=== PATIENT | female | born 1940 | race Caucasian/White ===

== ENCOUNTER → 2016-05-10 | Outpatient (CLI) | payer OTHER, BC ==
--- NOTE | 2016-05-10 17:48 | MA ---
Screening Digital Mammogram With iCAD Analysis Clinical Indications: Routine screening. Technique: Standard cephalocaudal projections are obtained. Digital breast tomosynthesis was performe d in the MLO projection with reconstruction at 1.0 mm slice thickness and composite MLO views reconst ructed. This examination is processed by the iCAD computer aided detection system. Comparison: May 2015, May 2014, April 2013, March 2012, January 2012, December 2010, A ugust 2009. Breast density: Type C: Heterogeneously dense. Findings: CAD was reviewed. No masses, suspicious calcifications or secondary signs of malignancy are seen. There has been no significant change in the appearance of either breast. Impression: Negative mammogram. BI-RADS 1. Recommendation: Routine mammographic screening in one year as long as physical examination is negativ e in this patient with heterogeneously dense breast parenchyma. [facility] will send a result letter to the patient. Negative mammography should not preclude additional workup of a clinically suspicious finding. The patient's information is entered into a reminder system with a target due date for her next mammo gram.
== END ==
LOC: FIMAGING 14:04
DX: Z12.31 Encounter for screening mammogram for malignant neoplasm of breast (principal)
CPT/HCPCS: G0202

== ENCOUNTER → 2016-06-14 | Outpatient (CLI) | payer OTHER, BC ==
--- NOTE | 2016-06-14 09:44 | DX ---
Chest, Two Views at 0900 hours History: COUGH, HEADACHE AND BODY ACHES THAT STARTED 3 DAYS AGO. Comparison: None. Findings: Cardiac silhouette is within normal range. Patchy opacity in the left lower lobe which may represent pneumonia with slight elevation of the left hemidiaphragm. Right lung is clear. Slightly to rtuous aorta. Impression: 1. Suspect left lower lobe pneumonia. 2. Recommend follow-up until clear. Findings and recommendations discussed with [facility] [place] urgent care physician, Barry Shaffer MD at [address] [facility], 06/14/2016. Final report concurs with initial preliminary interpretation.
== END ==
LOC: BMCIMAGING 09:05
PROVIDERS: ATTEND Emergency Medicine
DX: R05 Cough (principal); R51 Headache; M79.1 Myalgia; R91.8 Other nonspecific abnormal finding of lung field

== ENCOUNTER → 2016-06-22 | Outpatient (CLI) | payer OTHER, BC | LOC: BMCIMAGING 10:08 | PROVIDERS: ATTEND Emergency Medicine | DX: R50.9 Fever, unspecified (principal) ==

== ENCOUNTER → 2017-07-07 | Outpatient (CLI) | payer OTHER, BC | LOC: FIMAGING 08:39 | PROVIDERS: ATTEND Internal Medicine | DX: Z12.31 Encounter for screening mammogram for malignant neoplasm of breast (principal) ==

== ENCOUNTER → 2017-08-01 | Outpatient (CLI) | payer OTHER, BC | LOC: BMCIMAGING 08:52 | PROVIDERS: ATTEND Internal Medicine | DX: M19.071 Primary osteoarthritis, right ankle and foot (principal) | CPT/HCPCS: 84402-90 ==

== ENCOUNTER → 2017-11-08 | Outpatient (CLI) | payer OTHER, BC | LOC: FIMAGING 10:32 | PROVIDERS: ATTEND Internal Medicine | DX: Z13.820 Encounter for screening for osteoporosis (principal); M85.89 Other specified disorders of bone density and structure, multiple sites; Z78.0 Asymptomatic menopausal state ==

== ENCOUNTER → 2018-01-26 | Outpatient (CLI) | payer OTHER, BC | LOC: FIMAGING 17:05 | PROVIDERS: ATTEND Internal Medicine | DX: R22.42 Localized swelling, mass and lump, left lower limb (principal) ==

== ENCOUNTER 2018-01-31 14:24 | Emergency (ER) | payer OTHER, BC ==
[2018-01-31 14:31] VITALS: BP 117/74
--- NOTE | 2018-01-31 15:21 | EDPHY ---
General Time Seen by Provider: 01/31/18 15:11 Narrative: CHIEF COMPLAINT: cough, sore throat HISTORY OF PRESENT ILLNESS: Patient presents by private vehicle with her spouse with complaints of cough and sore throat. She reports a cough that started on Tuesday, just after returning home from [place] and after receiving herpes zoster and flu immunizations on . Cough was mild at but steadily worsened. Dry nonproductive. She also has a sore throat that she was diagnosed with positive strep test on Tuesday at urgent care. She was prescribed cough medicine and penicillin. She was feeling better until yesterday. Now the cough is worse. It is keeping her up at night. No chest pain. No shortness of breath. No fever. No headache. No neck pain or stiffness. No anticoagulants. No other associated complaints modifying factors. REVIEW OF SYSTEMS: 10 systems were reviewed and negative with the exception of the elements mentioned in the history of present illness. PCP: Dr. Cecile Ballesteros SPECIALISTS: None PAST MEDICAL HISTORY: No ongoing diagnoses PAST SURGICAL HISTORY: No recent surgeries SOCIAL HISTORY: Nonsmoker. Lives independently with her spouse FAMILY HISTORY: Noncontributory EXAMINATION: General Appearance: Alert, no distress. Well appearing. Head: normocephalic, atraumatic Eyes: Pupils equal and round, no conjunctival pallor or injection ENT, Mouth: Mucous membranes moist. Uvula is midline. There is mild posterior erythema. No edema. No trismus. Neck: Normal inspection, supple, non-tender Respiratory: Mild rhonchi. No wheezing. No crackles. No diminishment. No consolidation. No retractions or distress Cardiovascular: Regular rate and rhythm Neurological: A&O, nonfocal, normal gait Skin: Warm and dry, no rash Extremities: Nontender, no pedal edema Psychiatric: Mood and affect normal DIFFERENTIAL DIAGNOSES: Including but not limited to acute bronchitis, viral bronchitis, pneumonia, pneumonitis, influenza, PE, pleural effusion MDM: 3:15 p.m. Acute cough over the past 3 days with likely acute bronchitis. Patient had a two view chest x-ray performed at urgent care on Tuesday that was read as no evidence of pneumonia by radiologist. She has been on penicillin for strep pharyngitis will continue this. We discussed having additional coverage consisting of Zithromax. I will also transition her from cheratussin to Hycodan for cough. Will add dextromethorphan during the day. Also albuterol inhaler as needed. We discussed contacting her primary care physician to be re- evaluated this week. We discussed strict ED precautions for any worsening symptoms, any development of chest pain or shortness of breath. Any headache or neck pain. She is comfortable this plan. Her vital signs are within normal limits on room air. She is well-appearing. Discharged home stable condition. SUPERVISION: This patient was independently evaluated without direct involvement of or examination by the attending physician. CONSULTATION: None - History Smoking Status: Never smoked - Objective Vital Signs: Initial Vital Signs Temperature (C) 99.1 F 01/31/18 14:28 Heart Rate 81 01/31/18 14:28 Respiratory Rate 18 01/31/18 14:28 Blood Pressure 117/74 01/31/18 14:28 O2 Sat (%) 95 01/31/18 14:28 O2 Delivery Mode Room Air Allergies/Adverse Reactions: No Known Allergies Allergy (Verified 01/31/18 14:26) Home Medications: Medication Instructions Recorded Albuterol [Proventil Inhaler HFA 1 - 2 puffs IH Q4H PRN #1 mdi 01/31/18 (*)] Azithromycin [Zithromax] 500 mg PO DAILY #10 tab 01/31/18 Codeine Sulfate 01/31/18 HYDROcodone/HOMATROPINE HYCODA 1 tsp PO Q4-6PRN PRN #120 ml 01/31/18 [Hycodan Syrup (*)] Penicillin VK 01/31/18 Departure - Departure Disposition: Home, Routine, Self-Care Clinical Impression: Acute bronchitis Qualifiers: Bronchitis organism: unspecified organism Qualified Code(s): J20.9 - Acute bronchitis, unspecified Pharyngitis Qualifiers: Pharyngitis/tonsillitis etiology: streptococcus Qualified Code(s): J02.0 - Streptococcal pharyngitis Condition: Good Instructions: Strep Throat (ED), Acute Bronchitis (ED) Additional Instructions: 1. Continue your previous prescription of penicillin 2. Continue previous ibuprofen [id number], 400-600 mg every 8 hr 3. Albuterol inhaler 1-2 puffs every 2-4 hours as needed for shortness of breath or wheezing 4. Ldpz-siw-waddoys dextromethorphan as instructed on the bottle as needed for cough 5. Discontinue the mcneal Tussin and transition to Hycodan cough medicine as needed as prescribed 6. Follow up primary care physician this week for repeat chest x-ray 7. Return here for persistent cough, fever, any chest pain of any kind, shortness of breath Referrals: Cecile Ballesteros MD [Primary Care Provider] - As per Instructions Prescriptions: Albuterol [Proventil Inhaler HFA (*)] 1 - 2 puffs IH Q4H PRN #1 mdi PRN Reason: Short Of Breath/Dyspnea Azithromycin [Zithromax] 500 mg PO DAILY #10 tab HYDROcodone/HOMATROPINE HYCODA [Hycodan Syrup (*)] 1 tsp PO Q4-6PRN PRN #120 ml PRN Reason: Cough, Mild
== END 2018-01-31 15:39 | disposition home or self-care (01) ==
DX: J20.9 Acute bronchitis, unspecified (principal); J02.0 Streptococcal pharyngitis

== ENCOUNTER → 2018-07-11 | Outpatient (CLI) | payer OTHER, BC | LOC: FIMAGING 09:17 | PROVIDERS: ATTEND Internal Medicine | DX: Z12.31 Encounter for screening mammogram for malignant neoplasm of breast (principal) ==